=== PATIENT | male | born 1955 | race Two or more races ===

== ENCOUNTER 2017-07-04 00:27 | Emergency (ER) | payer MEDICAID ==
[~2017-07-04] VITALS: Ht 165.1 cm; Wt 79.4 kg
[~2017-07-04 00:27] MED LIST: HYDR25TA4; LISI-646
[2017-07-04 01:25] LABS: Basophils # (auto) 0 uL; Basophils % (auto) 0.2 % (0.0-2.0); Eosinophils # (auto) 0.1 uL; Eosinophils % (auto) 0.7 % (0.0-7.0); Hematocrit 28.1 % (41.0-53.0); Hemoglobin 9.6 g/dL (13.5-17.5); Lymphocytes # (auto) 0.8 uL; Lymphocytes % (auto) 7.8 % (10.0-50.0); Mean Corpuscular Hemoglobin 30.7 pg (28.0-32.0); Mean Corpuscular Hgb Conc. 34.1 g/dL (32.0-36.0); Monocytes # (auto) 1.1 uL; Monocytes % (auto) 11.1 % (0.0-12.0); Neutrophils # (auto) 8.1 uL; Neutrophils % (auto) 80.2 % (37.0-80.0); Nucleated Red Blood Cells % 0.1 %; Platelet Count (auto) 76 10^3/uL (140-450); Red Blood Cells 3.12 10^6/uL (4.5-5.90); Red Cell Distribution Width 15.1 % (11.8-14.3)
[2017-07-04 01:38] LABS: Alanine Aminotransferase 55 U/L (16-61); Albumin 1.6 g/dL (3.4-5.0); Anion Gap 10 (5-15); Aspartate Aminotransferase 151 U/L (15-37); BUN/Creatinine Ratio 21.1; Blood Urea Nitrogen 30 mg/dL (7-18); Calcium 7.1 mg/dL (8.5-10.1); Carbon Dioxide 18 mmol/L (21-32); Chloride 113 mmol/L (98-107); GFR African American 65 mL/min; GFR Non-African American 54 mL/min; Glucose 89 mg/dL (74-106); Lipase 264 U/L (73-393); Potassium 4.1 mmol/L (3.5-5.1); Sodium 141 mmol/L (136-145)
[2017-07-04 01:43] LABS: Alkaline Phosphatase 107 U/L (45-117); Bilirubin, Total 1.1 mg/dL (0.2-1.0); INR 1.28 (0.9-1.15); Partial Thromboplastin Time 34.5 sec (22.64-33.71); Total Protein 7.5 g/dL (6.4-8.2)
[2017-07-04] MEDS ORDERED: cefTRIAXone 1GM/10ml IVPUSH 10 ML IV ONE (04:45)
[2017-07-04] MEDS ORDERED: MORPHINE SULFATE 4 MG/ML SYR/VIAL IV ONE (05:00)
[2017-07-04] MEDS ORDERED: ONDANSETRON HCL 4 MG/2 ML VIAL IV ONE (05:00)
[2017-07-04 05:58] LABS: Urine Bacteria MANY /hpf (None Seen); Urine Blood 3+ /uL (Negative); Urine Hyaline Cast MANY /lpf (0 - 2); Urine Mucus FEW (None Seen); Urine Specific Gravity 1.016 (1.001-1.035); Urine WBC 23 /hpf (0 - 3)
[2017-07-04 06:11] LABS: Alcohol, Urine < 3.0 mg/dL (0-5); Amphetamine Screen, Urine POSITIVE (NEGATIVE); Barbiturate Scree,Urine NEGATIVE (NEGATIVE); Benzodiazephine Screen, Urine NEGATIVE (NEGATIVE); Cannabinoid Screen, Urine NEGATIVE (NEGATIVE); Cocaine Screen, Urine NEGATIVE (NEGATIVE); Opiate Scree,Urine POSITIVE (NEGATIVE); Phencyclidine Screen, Urine NEGATIVE (NEGATIVE)
[2017-07-04 07:43] VITALS: BP 154/92
[2017-07-04] MEDS ORDERED: CLINDAMYCIN 900MG IV 50 ML IV ONE (08:00)
== END 2017-07-04 08:40 | disposition home or self-care (01) ==
LOC: EDBD 00:27 → ER 00:27
DX: M46.26 Osteomyelitis of vertebra, lumbar region (principal); F15.20 Other stimulant dependence, uncomplicated; I10 Essential (primary) hypertension; Z88.6 Allergy status to analgesic agent; W10.9XXA Fall (on) (from) unspecified stairs and steps, initial encounter; Y93.89 Activity, other specified; Y92.89 Other specified places as the place of occurrence of the external cause; Y99.8 Other external cause status
CPT/HCPCS: 36415; 72131; 80053; 80307; 81001; 83690; 84484; 85025; 85610; 85730; 96365; 96375; 99285; J2270; J2405; J3490

== ENCOUNTER 2017-12-18 18:07 | Inpatient (IN) | payer MEDICAID ==
[~2017-12-18] VITALS: Ht 165.1 cm; Wt 73.9 kg
[2017-12-18 19:35] LABS: Basophils # (auto) 0 uL; Basophils % (auto) 0.7 % (0.0-2.0); Eosinophils # (auto) 0.2 uL; Monocytes # (auto) 0.4 uL; Red Blood Cells 2.87 10^6/uL (4.5-5.90)
[2017-12-18 19:38] LABS: Platelet Count (auto) 50 10^3/uL (140-450)
[2017-12-18 19:40] LABS: White Blood Cell 3.9 10^3/uL (4.4-10.8)
[2017-12-18 19:42] LABS: Eosinophils % (auto) 6.2 % (0.0-7.0); Lymphocytes # (auto) 0.9 uL; Lymphocytes % (auto) 22.2 % (10.0-50.0); Monocytes % (auto) 10.5 % (0.0-12.0); Neutrophils # (auto) 2.4 uL; Neutrophils % (auto) 60.4 % (37.0-80.0)
[2017-12-18 19:43] LABS: Hemoglobin 8.3 g/dL (13.5-17.5); Mean Corpuscular Hemoglobin 28.8 pg (28.0-32.0); Mean Corpuscular Hgb Conc. 33.1 g/dL (32.0-36.0); Red Cell Distribution Width 15.9 % (11.8-14.3)
[2017-12-18 19:49] LABS: INR 1.24 (0.9-1.15); Partial Thromboplastin Time 29.9 sec (23.78-33.04); Prothrombin Time 13.1 sec (9.27-12.13)
[2017-12-18 19:52] LABS: Alanine Aminotransferase 32 U/L (16-61); Albumin 1.7 g/dL (3.4-5.0); Amylase 93 U/L (25-115); Anion Gap 6 (5-15); Aspartate Aminotransferase 81 U/L (15-37); BUN/Creatinine Ratio 19.8; Blood Urea Nitrogen 23 mg/dL (7-18); Calcium 6.7 mg/dL (8.5-10.1); Carbon Dioxide 21 mmol/L (21-32); Chloride 116 mmol/L (98-107); GFR African American 82 mL/min; GFR Non-African American 68 mL/min; Glucose 98 mg/dL (74-106); Lipase 270 U/L (73-393); Potassium 3.9 mmol/L (3.5-5.1); Sodium 143 mmol/L (136-145)
[2017-12-18 19:57] LABS: Alkaline Phosphatase 158 U/L (45-117); Bilirubin, Total 0.4 mg/dL (0.2-1.0); Total Protein 6.7 g/dL (6.4-8.2)
[2017-12-19 01:17] LABS: Alcohol, Urine < 3.0 mg/dL (0-5); Amphetamine Screen, Urine NEGATIVE (NEGATIVE); Barbiturate Scree,Urine NEGATIVE (NEGATIVE); Benzodiazephine Screen, Urine NEGATIVE (NEGATIVE); Cannabinoid Screen, Urine NEGATIVE (NEGATIVE); Cocaine Screen, Urine NEGATIVE (NEGATIVE); Opiate Scree,Urine NEGATIVE (NEGATIVE); Phencyclidine Screen, Urine NEGATIVE (NEGATIVE)
[2017-12-19 01:29] LABS: Urine Bacteria FEW /hpf (None Seen); Urine Blood 3+ /uL (Negative); Urine Hyaline Cast FEW /lpf (0 - 2); Urine Mucus FEW (None Seen); Urine Specific Gravity 1.016 (1.001-1.035); Urine WBC 6 /hpf (0 - 3)
[2017-12-19] MEDS ORDERED: NALBUPHINE HCL 10 MG/1ml INJECTION IV ONE (01:30)
[2017-12-19] MEDS ORDERED: FUROSEMIDE 20 MG/2 ML VIAL IV ONE (01:30)
[2017-12-19] MEDS ORDERED: ONDANSETRON HCL 4 MG/2 ML VIAL IV ONE (01:30)
[2017-12-19] MEDS ORDERED: SPIRONOLACTONE 25 MG TAB PO ONE (01:30)
[2017-12-19] MEDS ORDERED: TEMAZEPAM 15 MG CAP PO PRN (03:00)
[2017-12-19] MEDS ORDERED: ONDANSETRON HCL 4 MG/2 ML VIAL IV PRN (03:00)
[2017-12-19] MEDS: PIPERACILLIN-TAZOB 3.375GM 100 ML IV SCH ×4 (05:25→23:30)
[2017-12-19] MEDS: FUROSEMIDE 40 MG TAB PO SCH (09:15)
[2017-12-19] MEDS: LACTULOSE 20Gm/30ML SOLN PO SCH ×2 (09:15→21:31)
[2017-12-19] MEDS: SPIRONOLACTONE 25 MG TAB PO SCH (09:15)
[2017-12-19] MEDS: amLODIPine BESYLATE 5 MG TAB PO SCH (09:15)
[2017-12-19] MEDS: PANTOPRAZOLE 40 MG TAB PO SCH (09:16)
[2017-12-19] MEDS: RIFAXIMIN 550 MG TAB PO SCH ×2 (11:00→21:31)
[2017-12-19] MEDS ORDERED: methylPREDNISolone SOD SUCC 40 MG/ML VL IV ONE (14:45)
[2017-12-19] MEDS ORDERED: traMADol HCL 50 MG TAB PO ONE (14:45)
[2017-12-19] MEDS: ALBUTEROL SULF 2.5 MG/0.5ML(0.5%) NEB SOLN NEB PRN (14:50)
[2017-12-19 14:55] VITALS: BP 148/77
[2017-12-19] MEDS: cloNIDine HCL 0.1 MG TAB PO PRN (17:52)
[2017-12-19 17:55] VITALS: BP 163/93
[2017-12-19] MEDS ORDERED: FURO40TA PO (18:32)
[2017-12-19] MEDS ORDERED: PANT40TA2 PO (18:32)
[2017-12-19] MEDS ORDERED: SPIR50TA2 PO (18:32)
[2017-12-19] MEDS ORDERED: LACT10SO3 PO (18:32)
[2017-12-19] MEDS ORDERED: PROP10TA57 PO (18:32)
[2017-12-19] MEDS: IPRATROPIUM BROM 0.5 MG/2.5ML INH SOL NEB SCH (18:50)
[2017-12-19 22:00] VITALS: BP 142/92
[2017-12-19] MEDS: methylPREDNISolone SOD SUCC 40 MG/ML VL IV SCH (23:30)
[2017-12-20] VITALS (9 sets, daily range): BP systolic 121–154; BP diastolic 61–84
[2017-12-20] MEDS: IPRATROPIUM BROM 0.5 MG/2.5ML INH SOL NEB SCH ×4 (00:41→19:18)
[2017-12-20] MEDS: methylPREDNISolone SOD SUCC 40 MG/ML VL IV SCH ×3 (05:38→21:51)
[2017-12-20] MEDS: PIPERACILLIN-TAZOB 3.375GM 100 ML IV SCH ×4 (05:38→23:56)
[2017-12-20 08:53] LABS: Basophils # (auto) 0 uL; Eosinophils # (auto) 0 uL; Hemoglobin 8.4 g/dL (13.5-17.5); Monocytes # (auto) 0.1 uL; Neutrophils # (auto) 6.5 uL
[2017-12-20 08:56] LABS: Hematocrit 25.1 % (41.0-53.0); Lymphocytes # (auto) 0.3 uL; Lymphocytes % (auto) 4.8 % (10.0-50.0); Mean Corpuscular Hgb Conc. 33.6 g/dL (32.0-36.0); Mean Corpuscular Volume 86.3 fL (80.0-100.0); Monocytes % (auto) 1.5 % (0.0-12.0); Neutrophils % (auto) 93.7 % (37.0-80.0); Platelet Count (auto) 37 10^3/uL (140-450); Red Cell Distribution Width 15.9 % (11.8-14.3); White Blood Cell 6.9 10^3/uL (4.4-10.8)
[2017-12-20 09:17] LABS: Albumin 1.7 g/dL (3.4-5.0); BUN/Creatinine Ratio 16.5; Bilirubin, Total 0.5 mg/dL (0.2-1.0); Potassium 4.5 mmol/L (3.5-5.1); Total Protein 6.9 g/dL (6.4-8.2)
[2017-12-20] MEDS: RIFAXIMIN 550 MG TAB PO SCH ×2 (09:54→21:52)
[2017-12-20] MEDS: amLODIPine BESYLATE 5 MG TAB PO SCH (09:54)
[2017-12-20] MEDS: LACTULOSE 20Gm/30ML SOLN PO SCH ×2 (09:54→21:51)
[2017-12-20] MEDS: SPIRONOLACTONE 25 MG TAB PO SCH (09:55)
[2017-12-20] MEDS: PANTOPRAZOLE 40 MG TAB PO SCH (09:55)
[2017-12-20] MEDS: FUROSEMIDE 40 MG TAB PO SCH (09:55)
[2017-12-20] MEDS: traMADol HCL 50 MG TAB PO PRN ×2 (09:59→22:00)
[2017-12-20] MEDS: cloNIDine HCL 0.1 MG TAB PO PRN (11:50)
[2017-12-20 15:19] LABS: Basophils # (auto) 0 uL; Eosinophils # (auto) 0 uL; Mean Corpuscular Hemoglobin 28.7 pg (28.0-32.0); Monocytes # (auto) 0.2 uL
[2017-12-20 15:21] LABS: Hematocrit 23.4 % (41.0-53.0); Hemoglobin 7.7 g/dL (13.5-17.5); Lymphocytes # (auto) 0.4 uL; Lymphocytes % (auto) 4.5 % (10.0-50.0); Mean Corpuscular Volume 86.7 fL (80.0-100.0); Monocytes % (auto) 1.8 % (0.0-12.0); Neutrophils # (auto) 8.9 uL; Neutrophils % (auto) 93.7 % (37.0-80.0); Platelet Count (auto) 36 10^3/uL (140-450); Red Cell Distribution Width 15.6 % (11.8-14.3); White Blood Cell 9.4 10^3/uL (4.4-10.8)
[2017-12-20 15:38] LABS: Albumin 1.7 g/dL (3.4-5.0); BUN/Creatinine Ratio 16.9; Bilirubin, Total 0.4 mg/dL (0.2-1.0); Calcium 6.9 mg/dL (8.5-10.1); Magnesium 2.3 mg/dL (1.6-2.6); Potassium 4.5 mmol/L (3.5-5.1); Total Protein 6.3 g/dL (6.4-8.2)
[2017-12-20 16:19] LABS: Hepatitis B Surface Antibody Negative
[2017-12-20 16:58] LABS: Hepatitis A Total Antibody Positive
[2017-12-20 17:23] LABS: Hepatitis B Core Total AB Negative; Hepatitis B Surface Antigen Negative (Negative)
[2017-12-20 17:27] LABS: Hepatitis C Antibody Positive (Negative)
[2017-12-20] MEDS: Ensure HIGH Protein Chocolate 8oz Bottle PO SCH (17:41)
[2017-12-20] MEDS: ALBUTEROL SULF 2.5 MG/0.5ML(0.5%) NEB SOLN NEB PRN (19:17)
[2017-12-20] MEDS: PROPRANOLOL HCL 20 MG TAB PO SCH (21:52)
[2017-12-21] VITALS (8 sets, daily range): BP systolic 139–162; BP diastolic 73–83
[2017-12-21] MEDS: ALBUTEROL SULF 2.5 MG/0.5ML(0.5%) NEB SOLN NEB PRN (00:51)
[2017-12-21] MEDS: IPRATROPIUM BROM 0.5 MG/2.5ML INH SOL NEB SCH ×4 (00:51→20:08)
[2017-12-21] MEDS: traMADol HCL 50 MG TAB PO PRN (05:54)
[2017-12-21] MEDS: PIPERACILLIN-TAZOB 3.375GM 100 ML IV SCH ×2 (05:54→12:00)
[2017-12-21] MEDS: Ensure HIGH Protein Chocolate 8oz Bottle PO SCH ×3 (08:00→18:00)
[2017-12-21] MEDS: PANTOPRAZOLE 40 MG TAB PO SCH (10:00)
[2017-12-21] MEDS: RIFAXIMIN 550 MG TAB PO SCH ×2 (10:00→22:12)
[2017-12-21] MEDS: LACTULOSE 20Gm/30ML SOLN PO SCH ×2 (10:00→22:12)
[2017-12-21] MEDS: SPIRONOLACTONE 25 MG TAB PO SCH (10:00)
[2017-12-21] MEDS: PROPRANOLOL HCL 20 MG TAB PO SCH ×2 (10:00→22:13)
[2017-12-21] MEDS: FUROSEMIDE 40 MG TAB PO SCH (10:00)
[2017-12-21] MEDS: methylPREDNISolone SOD SUCC 40 MG/ML VL IV SCH (10:00)
[2017-12-21 12:56] LABS: Basophils # (auto) 0 uL; Eosinophils # (auto) 0 uL; Hemoglobin 8.7 g/dL (13.5-17.5); Monocytes # (auto) 0.5 uL
[2017-12-21 12:59] LABS: Hematocrit 26.4 % (41.0-53.0); Lymphocytes # (auto) 0.5 uL; Lymphocytes % (auto) 3.4 % (10.0-50.0); Mean Corpuscular Hemoglobin 28.6 pg (28.0-32.0); Mean Corpuscular Volume 86.9 fL (80.0-100.0); Monocytes % (auto) 3.3 % (0.0-12.0); Neutrophils # (auto) 14.9 uL; Neutrophils % (auto) 93.3 % (37.0-80.0); Platelet Count (auto) 56 10^3/uL (140-450); Red Blood Cells 3.03 10^6/uL (4.5-5.90); Red Cell Distribution Width 16.2 % (11.8-14.3)
[2017-12-21] MEDS ORDERED: cefTRIAXone 1GM/10ml IVPUSH 10 ML IV ONE (13:00)
[2017-12-21] MEDS ORDERED: LIDOCAINE 2% (LOCAL ANESTH.) PF 5ml SDV ONE (14:27)
[2017-12-21] MEDS: cloNIDine HCL 0.1 MG TAB PO PRN (17:58)
[2017-12-22] VITALS (7 sets, daily range): BP systolic 122–138; BP diastolic 55–78
[2017-12-22] MEDS: IPRATROPIUM BROM 0.5 MG/2.5ML INH SOL NEB SCH ×4 (00:57→18:45)
[2017-12-22 06:21] LABS: Basophils # (auto) 0 uL; Basophils % (auto) 0.1 % (0.0-2.0); Eosinophils # (auto) 0 uL; Hemoglobin 7.8 g/dL (13.5-17.5); Monocytes # (auto) 0.5 uL; Neutrophils # (auto) 6.8 uL; Platelet Count (auto) 40 10^3/uL (140-450); White Blood Cell 8.2 10^3/uL (4.4-10.8)
[2017-12-22 06:25] LABS: Hematocrit 23.2 % (41.0-53.0); Lymphocytes # (auto) 0.8 uL; Lymphocytes % (auto) 10.2 % (10.0-50.0); Mean Corpuscular Hemoglobin 28.9 pg (28.0-32.0); Mean Corpuscular Hgb Conc. 33.7 g/dL (32.0-36.0); Mean Corpuscular Volume 85.8 fL (80.0-100.0); Monocytes % (auto) 6.6 % (0.0-12.0); Neutrophils % (auto) 83.1 % (37.0-80.0); Red Cell Distribution Width 15.6 % (11.8-14.3)
[2017-12-22 06:36] LABS: INR 1.43 (0.9-1.15)
[2017-12-22 06:39] LABS: BUN/Creatinine Ratio 26.1; Potassium 4.1 mmol/L (3.5-5.1)
[2017-12-22] MEDS: ALBUTEROL SULF 2.5 MG/0.5ML(0.5%) NEB SOLN NEB PRN ×2 (06:39→11:39)
[2017-12-22] MEDS: PROPRANOLOL HCL 20 MG TAB PO SCH ×2 (09:52→22:05)
[2017-12-22] MEDS: FUROSEMIDE 40 MG TAB PO SCH (09:54)
[2017-12-22] MEDS: SPIRONOLACTONE 25 MG TAB PO SCH (09:54)
[2017-12-22] MEDS: LACTULOSE 20Gm/30ML SOLN PO SCH ×2 (09:55→22:05)
[2017-12-22] MEDS: cefTRIAXone 1GM/10ml IVPUSH 10 ML IV SCH (09:55)
[2017-12-22] MEDS: Ensure HIGH Protein Chocolate 8oz Bottle PO SCH ×3 (09:55→18:00)
[2017-12-22] MEDS ORDERED: FAMOTIDINE 20 MG TAB PO SCH (10:00)
[2017-12-22] MEDS ORDERED: methylPREDNISolone SOD SUCC 40 MG/ML VL IV SCH (10:00)
[2017-12-22] MEDS: RIFAXIMIN 550 MG TAB PO SCH ×2 (12:33→22:04)
[2017-12-23] MEDS: IPRATROPIUM BROM 0.5 MG/2.5ML INH SOL NEB SCH ×3 (00:30→11:39)
[2017-12-23 04:48] LABS: Basophils # (auto) 0 uL; Eosinophils # (auto) 0 uL; Neutrophils # (auto) 4.1 uL; Platelet Count (auto) 41 10^3/uL (140-450); White Blood Cell 5.6 10^3/uL (4.4-10.8)
[2017-12-23 04:51] LABS: Basophils % (auto) 0.2 % (0.0-2.0); Eosinophils % (auto) 0.7 % (0.0-7.0); Hematocrit 23.7 % (41.0-53.0); Mean Corpuscular Hemoglobin 28.7 pg (28.0-32.0); Mean Corpuscular Hgb Conc. 33.8 g/dL (32.0-36.0); Mean Corpuscular Volume 84.8 fL (80.0-100.0); Monocytes # (auto) 0.5 uL; Neutrophils % (auto) 73.1 % (37.0-80.0); Nucleated Red Blood Cells % 0.1 %; Red Blood Cells 2.79 10^6/uL (4.5-5.90); Red Cell Distribution Width 15.4 % (11.8-14.3)
[2017-12-23 05:00] VITALS: BP 130/64
[2017-12-23 05:14] LABS: BUN/Creatinine Ratio 27.6; Potassium 3.7 mmol/L (3.5-5.1)
[2017-12-23] MEDS: ALBUTEROL SULF 2.5 MG/0.5ML(0.5%) NEB SOLN NEB PRN ×2 (06:11→11:39)
[2017-12-23 08:28] VITALS: BP 145/80
[2017-12-23] MEDS: cefTRIAXone 1GM/10ml IVPUSH 10 ML IV SCH (09:34)
[2017-12-23] MEDS: Ensure HIGH Protein Chocolate 8oz Bottle PO SCH ×2 (09:34→12:00)
[2017-12-23] MEDS: LACTULOSE 20Gm/30ML SOLN PO SCH (09:34)
[2017-12-23] MEDS: FUROSEMIDE 40 MG TAB PO SCH (09:35)
[2017-12-23] MEDS: PROPRANOLOL HCL 20 MG TAB PO SCH (09:35)
[2017-12-23] MEDS: SPIRONOLACTONE 25 MG TAB PO SCH (09:35)
[2017-12-23] MEDS: RIFAXIMIN 550 MG TAB PO SCH (10:00)
[2017-12-23] MEDS ORDERED: predniSONE 20 MG TAB PO SCH (10:00)
[2017-12-23] MEDS ORDERED: FAMOTIDINE 20 MG TAB PO SCH (10:00)
[2017-12-23] MEDS ORDERED: NUTR-559 PO (12:25)
[2017-12-23 12:57] VITALS: BP 141/79
== END 2017-12-23 14:13 | disposition home health service (06) | DRG 280 ==
LOC: EDBD 18:07 → ER 18:16 → OVERFLOW 18:17 → WEST WING 12-19 17:13
PROVIDERS: ADMIT Nurse Practitioner; ATTEND Internal Medicine
PROC: 30233R1 Transfusion of Nonautologous Platelets into Peripheral Vein, Percutaneous Approach (ICD-10-PCS; 2017-12-20)
PROC: 0W9G3ZZ Drainage of Peritoneal Cavity, Percutaneous Approach (ICD-10-PCS; principal; 2017-12-21)
DX: K70.31 Alcoholic cirrhosis of liver with ascites (principal); N17.0 Acute kidney failure with tubular necrosis; E43 Unspecified severe protein-calorie malnutrition; D61.818 Other pancytopenia; K76.6 Portal hypertension; I50.9 Heart failure, unspecified; E88.09 Other disorders of plasma-protein metabolism, not elsewhere classified; I11.0 Hypertensive heart disease with heart failure; K57.30 Diverticulosis of large intestine without perforation or abscess without bleeding; J44.1 Chronic obstructive pulmonary disease with (acute) exacerbation; B18.2 Chronic viral hepatitis C; M19.90 Unspecified osteoarthritis, unspecified site; J98.11 Atelectasis; K21.9 Gastro-esophageal reflux disease without esophagitis; K42.9 Umbilical hernia without obstruction or gangrene; M51.26 Other intervertebral disc displacement, lumbar region; Z79.899 Other long term (current) drug therapy; Z88.8 Allergy status to other drugs, medicaments and biological substances; Z68.27 Body mass index [BMI] 27.0-27.9, adult
CPT/HCPCS: 10022; 36415; 49083; 51702; 71045; 71046; 74176; 76705; 76942; 80048; 80053; 80307; 81001; 82140; 82150; 83605; 83690; 83735; 83880; 83986; 84484; 85025; 85610; 85730; 86704; 86706; 86708; 86803; 86850; 86900; 86901; 87040; 87081; 87205; 87340; 89051; 93005; 94640; 94761; 96374; 96375; 97163; J0696; J2001; J2405; J2543

== ENCOUNTER 2018-01-11 00:20 | Inpatient (IN) | payer MEDICAID ==
[~2018-01-11] VITALS: Ht 165.1 cm; Wt 66.8 kg
[~2018-01-11 00:20] MED LIST changes: +FURO40TA PO; +LACT10SO3 PO; +NUTR-559 PO; +PANT40TA2 PO; +PROP10TA57 PO; +SPIR50TA2 PO
[2018-01-11 01:52] LABS: Basophils # (auto) 0 uL; Hemoglobin 7.8 g/dL (13.5-17.5); Lymphocytes # (auto) 0.7 uL; Monocytes # (auto) 0.4 uL; Platelet Count (auto) 55 10^3/uL (140-450)
[2018-01-11 01:54] LABS: Basophils % (auto) 0.8 % (0.0-2.0); Eosinophils # (auto) 0.1 uL; Eosinophils % (auto) 4.7 % (0.0-7.0); Hematocrit 24.4 % (41.0-53.0); Lymphocytes % (auto) 22.7 % (10.0-50.0); Mean Corpuscular Hemoglobin 26.5 pg (28.0-32.0); Mean Corpuscular Hgb Conc. 31.9 g/dL (32.0-36.0); Monocytes % (auto) 13.8 % (0.0-12.0); Neutrophils # (auto) 1.8 uL; Nucleated Red Blood Cells % 0.1 %; Red Blood Cells 2.94 10^6/uL (4.5-5.90); Red Cell Distribution Width 15.1 % (11.8-14.3); White Blood Cell 3.1 10^3/uL (4.4-10.8)
[2018-01-11 02:07] LABS: INR 1.29 (0.9-1.15); Prothrombin Time 13.6 sec (9.27-12.13)
[2018-01-11 02:10] LABS: Albumin 1.9 g/dL (3.4-5.0); Calcium 6.8 mg/dL (8.5-10.1); Potassium 3.4 mmol/L (3.5-5.1)
[2018-01-11 02:12] LABS: Bilirubin, Total 0.5 mg/dL (0.2-1.0); Total Protein 6.2 g/dL (6.4-8.2)
[2018-01-11] MEDS ORDERED: ONDANSETRON HCL 4 MG/2 ML VIAL IV ONE (04:15)
[2018-01-11] MEDS ORDERED: MORPHINE SULFATE 4 MG/ML SYR/VIAL IV ONE (04:15)
[2018-01-11] MEDS ORDERED: DEXTROSE (25%) 10 ML SYRG IV ONE (04:45)
[2018-01-11 05:06] LABS: Urine Bacteria NONE SEEN /hpf (None Seen); Urine Blood 3+ /uL (Negative); Urine Mucus FEW (None Seen); Urine Specific Gravity 1.017 (1.001-1.035); Urine WBC 2 /hpf (0 - 3)
[2018-01-11] MEDS ORDERED: POTASSIUM EFFERVESENT TAB 25 MEQ PO ONE (10:00)
[2018-01-11] MEDS ORDERED: LACTULOSE 20Gm/30ML SOLN PO SCH (10:00)
[2018-01-11] MEDS ORDERED: DOCUSATE SOD 100 MG CAP PO PRN (10:15)
[2018-01-11] MEDS: MORPHINE SULF INJ 2 MG/ML SYRINGE 1ML IV PRN ×3 (10:57→22:14)
[2018-01-11] MEDS: HCTZ 25 MG TAB PO SCH (11:00)
[2018-01-11] MEDS: FUROSEMIDE 40 MG TAB PO SCH (11:01)
[2018-01-11] MEDS: PANTOPRAZOLE 40 MG TAB PO SCH (11:02)
[2018-01-11] MEDS: PROPRANOLOL HCL 20 MG TAB PO SCH ×2 (11:03→22:12)
[2018-01-11] MEDS: LISINOPRIL 20 MG TAB PO SCH (11:04)
[2018-01-11] MEDS: ALBUTEROL SULF 2.5 MG/0.5ML(0.5%) NEB SOLN NEB SCH ×2 (12:08→18:52)
[2018-01-11] MEDS: Ensure Enlive Strawberry 8oz Bottle PO SCH ×2 (13:09→19:04)
[2018-01-11] MEDS: SODIUM CHLOR 0.9% PF (SALINE LOCK) 10ML VIAL/SYR IV SCH ×2 (14:01→22:09)
[2018-01-11 14:33] VITALS: BP 177/48
[2018-01-11 17:00] VITALS: BP 119/64
[2018-01-11] MEDS: SPIRONOLACTONE 25 MG TAB PO SCH (17:55)
[2018-01-11] MEDS: ONDANSETRON HCL 4 MG/2 ML VIAL IV PRN ×2 (18:15→22:14)
[2018-01-11] MEDS ORDERED: PHYTONADIONE ORAL Susp 10 mg/10ml PO ONE (18:30)
[2018-01-11 21:41] VITALS: BP 107/52
[2018-01-11] MEDS ORDERED: MORPHINE SULF INJ 2 MG/ML SYRINGE 1ML ONE (21:55)
[2018-01-11] MEDS ORDERED: ONDANSETRON HCL 4 MG/2 ML VIAL ONE (21:55)
[2018-01-11] MEDS: LACTULOSE 20Gm/30ML SOLN PO SCH (22:10)
[2018-01-12 04:55] VITALS: BP 107/48
[2018-01-12] MEDS: SODIUM CHLOR 0.9% PF (SALINE LOCK) 10ML VIAL/SYR IV SCH ×3 (06:12→22:25)
[2018-01-12] MEDS: SPIRONOLACTONE 25 MG TAB PO SCH ×2 (06:13→18:00)
[2018-01-12] MEDS: LACTULOSE 20Gm/30ML SOLN PO SCH ×3 (06:13→22:26)
[2018-01-12] MEDS: MORPHINE SULF INJ 2 MG/ML SYRINGE 1ML IV PRN ×5 (06:30→22:30)
[2018-01-12] MEDS: ALBUTEROL SULF 2.5 MG/0.5ML(0.5%) NEB SOLN NEB SCH ×4 (07:21→23:49)
[2018-01-12 07:36] LABS: Basophils # (auto) 0 uL; Eosinophils # (auto) 0.2 uL; Hemoglobin 9.2 g/dL (13.5-17.5); Monocytes # (auto) 0.4 uL; Neutrophils # (auto) 2.4 uL; Nucleated Red Blood Cells % 0.1 %; White Blood Cell 3.8 10^3/uL (4.4-10.8)
[2018-01-12 07:39] LABS: Basophils % (auto) 0.5 % (0.0-2.0); Eosinophils % (auto) 5.5 % (0.0-7.0); Hematocrit 28.8 % (41.0-53.0); Lymphocytes # (auto) 0.8 uL; Lymphocytes % (auto) 21.5 % (10.0-50.0); Mean Corpuscular Hemoglobin 26.8 pg (28.0-32.0); Mean Corpuscular Hgb Conc. 32.1 g/dL (32.0-36.0); Mean Corpuscular Volume 83.4 fL (80.0-100.0); Monocytes % (auto) 10.5 % (0.0-12.0); Platelet Count (auto) 65 10^3/uL (140-450); Red Blood Cells 3.45 10^6/uL (4.5-5.90)
[2018-01-12 08:08] LABS: Albumin 1.9 g/dL (3.4-5.0); BUN/Creatinine Ratio 18.9; Bilirubin, Total 0.5 mg/dL (0.2-1.0); Calcium 7.5 mg/dL (8.5-10.1); Potassium 3.9 mmol/L (3.5-5.1); Total Protein 6.6 g/dL (6.4-8.2)
[2018-01-12 09:00] VITALS: BP 101/57
[2018-01-12] MEDS ORDERED: LACTULOSE 20Gm/30ML SOLN PO ONE (09:30)
[2018-01-12] MEDS ORDERED: POTASSIUM CHL 10 Meq TABLET PO ONE (09:30)
[2018-01-12] MEDS: Ensure Enlive Strawberry 8oz Bottle PO SCH ×3 (09:52→18:13)
[2018-01-12] MEDS: LISINOPRIL 20 MG TAB PO SCH (09:55)
[2018-01-12] MEDS: HCTZ 25 MG TAB PO SCH (09:55)
[2018-01-12] MEDS: MULTIPLE VITAMIN TAB PO SCH (09:56)
[2018-01-12] MEDS: PROPRANOLOL HCL 20 MG TAB PO SCH ×2 (09:57→22:27)
[2018-01-12] MEDS: PANTOPRAZOLE 40 MG TAB PO SCH (09:57)
[2018-01-12] MEDS: FUROSEMIDE 40 MG TAB PO SCH (10:00)
[2018-01-12] MEDS: ONDANSETRON HCL 4 MG/2 ML VIAL IV PRN ×4 (10:34→22:29)
[2018-01-12 13:00] VITALS: BP 92/55
[2018-01-12 17:00] VITALS: BP 107/58
[2018-01-12 21:47] VITALS: BP 106/55
[2018-01-13 05:05] VITALS: BP 120/63
[2018-01-13 06:15] LABS: Basophils # (auto) 0 uL; Eosinophils # (auto) 0.2 uL; Hematocrit 24.4 % (41.0-53.0); Hemoglobin 8.2 g/dL (13.5-17.5); Lymphocytes # (auto) 0.7 uL; Mean Corpuscular Hgb Conc. 33.5 g/dL (32.0-36.0); Monocytes # (auto) 0.4 uL; Red Blood Cells 2.97 10^6/uL (4.5-5.90); White Blood Cell 2.8 10^3/uL (4.4-10.8)
[2018-01-13 06:19] LABS: Basophils % (auto) 0.4 % (0.0-2.0); Eosinophils % (auto) 7.7 % (0.0-7.0); Lymphocytes % (auto) 24.1 % (10.0-50.0); Mean Corpuscular Hemoglobin 27.6 pg (28.0-32.0); Mean Corpuscular Volume 82.4 fL (80.0-100.0); Monocytes % (auto) 13.2 % (0.0-12.0); Neutrophils # (auto) 1.5 uL; Neutrophils % (auto) 54.6 % (37.0-80.0); Nucleated Red Blood Cells % 0.1 %; Platelet Count (auto) 52 10^3/uL (140-450); Red Cell Distribution Width 14.9 % (11.8-14.3)
[2018-01-13] MEDS: SODIUM CHLOR 0.9% PF (SALINE LOCK) 10ML VIAL/SYR IV SCH ×3 (06:20→21:21)
[2018-01-13] MEDS: ALBUTEROL SULF 2.5 MG/0.5ML(0.5%) NEB SOLN NEB SCH ×3 (06:20→19:33)
[2018-01-13] MEDS: LACTULOSE 20Gm/30ML SOLN PO SCH ×4 (06:21→21:20)
[2018-01-13] MEDS: SPIRONOLACTONE 25 MG TAB PO SCH ×2 (06:23→18:05)
[2018-01-13 06:39] LABS: Potassium 4.5 mmol/L (3.5-5.1)
[2018-01-13 06:46] LABS: Albumin 1.7 g/dL (3.4-5.0); BUN/Creatinine Ratio 18.5; Calcium 7.6 mg/dL (8.5-10.1); Magnesium 2.3 mg/dL (1.6-2.6)
[2018-01-13 06:49] LABS: Bilirubin, Total 0.4 mg/dL (0.2-1.0); Total Protein 5.5 g/dL (6.4-8.2)
[2018-01-13 08:27] VITALS: BP 112/62
[2018-01-13] MEDS: FUROSEMIDE 40 MG TAB PO SCH (09:42)
[2018-01-13] MEDS: Ensure Enlive Strawberry 8oz Bottle PO SCH ×3 (09:42→18:06)
[2018-01-13] MEDS: PROPRANOLOL HCL 20 MG TAB PO SCH ×2 (09:42→21:19)
[2018-01-13] MEDS: MORPHINE SULF INJ 2 MG/ML SYRINGE 1ML IV PRN ×2 (09:43→14:31)
[2018-01-13] MEDS: MULTIPLE VITAMIN TAB PO SCH (09:43)
[2018-01-13] MEDS: PANTOPRAZOLE 40 MG TAB PO SCH (09:43)
[2018-01-13] MEDS: ONDANSETRON HCL 4 MG/2 ML VIAL IV PRN ×2 (09:44→14:32)
[2018-01-13] MEDS ORDERED: POTASSIUM CHL 10 Meq TABLET PO SCH (10:00)
[2018-01-13 16:57] VITALS: BP 135/75
[2018-01-13 20:00] VITALS: BP 112/62
[2018-01-13] MEDS: TEMAZEPAM 15 MG CAP PO PRN (21:19)
[2018-01-13 21:46] VITALS: BP 128/62
[2018-01-14] VITALS (8 sets, daily range): BP systolic 110–148; BP diastolic 58–78
[2018-01-14] MEDS: SPIRONOLACTONE 25 MG TAB PO SCH ×2 (06:30→17:31)
[2018-01-14] MEDS: LACTULOSE 20Gm/30ML SOLN PO SCH ×4 (06:30→20:42)
[2018-01-14] MEDS: SODIUM CHLOR 0.9% PF (SALINE LOCK) 10ML VIAL/SYR IV SCH ×3 (06:31→20:42)
[2018-01-14 06:58] LABS: BUN/Creatinine Ratio 17.2; Calcium 7.4 mg/dL (8.5-10.1); Potassium 4.8 mmol/L (3.5-5.1)
[2018-01-14] MEDS: ALBUTEROL SULF 2.5 MG/0.5ML(0.5%) NEB SOLN NEB SCH ×3 (07:14→18:39)
[2018-01-14] MEDS: Ensure Enlive Strawberry 8oz Bottle PO SCH ×3 (08:00→17:31)
[2018-01-14] MEDS: MULTIPLE VITAMIN TAB PO SCH (10:07)
[2018-01-14] MEDS: PANTOPRAZOLE 40 MG TAB PO SCH (10:07)
[2018-01-14] MEDS: FUROSEMIDE 40 MG TAB PO SCH (10:07)
[2018-01-14] MEDS: PROPRANOLOL HCL 20 MG TAB PO SCH ×2 (10:07→22:00)
[2018-01-14] MEDS: RIFAXIMIN 550 MG TAB PO SCH ×2 (11:15→22:00)
[2018-01-14] MEDS: SODIUM CHLORIDE 0.9% 1,000 ML IV SCH (12:16)
[2018-01-14] MEDS: NutriHep RTU 240 mL Unflavored PO SCH (18:28)
[2018-01-14] MEDS: TEMAZEPAM 15 MG CAP PO PRN (20:42)
[2018-01-15] MEDS: ALBUTEROL SULF 2.5 MG/0.5ML(0.5%) NEB SOLN NEB SCH ×2 (00:20→06:46)
[2018-01-15] MEDS: LACTULOSE 20Gm/30ML SOLN PO SCH ×6 (04:00→20:01)
[2018-01-15 05:00] VITALS: BP 128/61
[2018-01-15] MEDS: SODIUM CHLOR 0.9% PF (SALINE LOCK) 10ML VIAL/SYR IV SCH ×3 (06:12→21:55)
[2018-01-15] MEDS: SPIRONOLACTONE 25 MG TAB PO SCH ×2 (06:12→17:59)
[2018-01-15 07:09] LABS: Basophils # (auto) 0 uL; Eosinophils # (auto) 0.2 uL; Hemoglobin 8.6 g/dL (13.5-17.5); Lymphocytes # (auto) 0.8 uL; Nucleated Red Blood Cells % 0.1 %; Red Cell Distribution Width 15.1 % (11.8-14.3); White Blood Cell 3.6 10^3/uL (4.4-10.8)
[2018-01-15 07:11] LABS: Basophils % (auto) 0.6 % (0.0-2.0); Eosinophils % (auto) 6.3 % (0.0-7.0); Hematocrit 26.3 % (41.0-53.0); Lymphocytes % (auto) 21.9 % (10.0-50.0); Mean Corpuscular Hgb Conc. 32.8 g/dL (32.0-36.0); Mean Corpuscular Volume 82.2 fL (80.0-100.0); Monocytes # (auto) 0.4 uL; Monocytes % (auto) 11.9 % (0.0-12.0); Neutrophils # (auto) 2.1 uL; Neutrophils % (auto) 59.3 % (37.0-80.0); Platelet Count (auto) 56 10^3/uL (140-450)
[2018-01-15 07:24] LABS: Albumin 1.7 g/dL (3.4-5.0); BUN/Creatinine Ratio 20.1; Calcium 7.2 mg/dL (8.5-10.1); Potassium 4.6 mmol/L (3.5-5.1)
[2018-01-15 07:26] LABS: Bilirubin, Total 0.5 mg/dL (0.2-1.0); Total Protein 5.8 g/dL (6.4-8.2)
[2018-01-15] MEDS: SODIUM CHLORIDE 0.9% 1,000 ML IV SCH (08:15)
[2018-01-15] MEDS: NutriHep RTU 240 mL Unflavored PO SCH ×2 (08:48→18:00)
[2018-01-15 08:49] VITALS: BP 138/65
[2018-01-15] MEDS ORDERED: cefTRIAXone 1GM/10ml IVPUSH 10 ML IV ONE (10:45)
[2018-01-15] MEDS: PROPRANOLOL HCL 20 MG TAB PO SCH ×2 (11:06→21:56)
[2018-01-15] MEDS: FUROSEMIDE 40 MG TAB PO SCH (11:06)
[2018-01-15] MEDS: RIFAXIMIN 550 MG TAB PO SCH ×2 (11:07→21:56)
[2018-01-15] MEDS: PANTOPRAZOLE 40 MG TAB PO SCH (11:07)
[2018-01-15] MEDS: MULTIPLE VITAMIN TAB PO SCH (11:07)
[2018-01-15 13:00] VITALS: BP 141/59
[2018-01-15 16:54] VITALS: BP 139/70
[2018-01-15 21:45] VITALS: BP 142/58
[2018-01-16 04:45] VITALS: BP 126/63
[2018-01-16] MEDS: SODIUM CHLOR 0.9% PF (SALINE LOCK) 10ML VIAL/SYR IV SCH (04:48)
[2018-01-16] MEDS: LACTULOSE 20Gm/30ML SOLN PO SCH ×3 (04:48→08:00)
[2018-01-16] MEDS: SPIRONOLACTONE 25 MG TAB PO SCH (05:52)
[2018-01-16 06:49] LABS: Basophils # (auto) 0 uL; Eosinophils # (auto) 0.3 uL; Hemoglobin 9.3 g/dL (13.5-17.5); Lymphocytes # (auto) 0.8 uL; Monocytes # (auto) 0.6 uL; Neutrophils # (auto) 2.1 uL; Platelet Count (auto) 57 10^3/uL (140-450); White Blood Cell 3.8 10^3/uL (4.4-10.8)
[2018-01-16 06:53] LABS: Basophils % (auto) 0.6 % (0.0-2.0); Eosinophils % (auto) 7.1 % (0.0-7.0); Hematocrit 28.1 % (41.0-53.0); Lymphocytes % (auto) 21.9 % (10.0-50.0); Mean Corpuscular Hemoglobin 26.9 pg (28.0-32.0); Mean Corpuscular Volume 81.5 fL (80.0-100.0); Monocytes % (auto) 15.3 % (0.0-12.0); Neutrophils % (auto) 55.1 % (37.0-80.0); Nucleated Red Blood Cells % 0.2 %; Red Blood Cells 3.44 10^6/uL (4.5-5.90); Red Cell Distribution Width 15.1 % (11.8-14.3)
[2018-01-16 07:11] LABS: Albumin 1.8 g/dL (3.4-5.0); BUN/Creatinine Ratio 18.1; Bilirubin, Total 0.5 mg/dL (0.2-1.0); Calcium 7.8 mg/dL (8.5-10.1); Potassium 4.6 mmol/L (3.5-5.1); Total Protein 6.4 g/dL (6.4-8.2)
[2018-01-16] MEDS: NutriHep RTU 240 mL Unflavored PO SCH (08:04)
[2018-01-16] MEDS ORDERED: cefTRIAXone 1GM/10ml IVPUSH 10 ML IV SCH (09:00)
[2018-01-16] MEDS: FUROSEMIDE 40 MG TAB PO SCH (09:46)
[2018-01-16] MEDS: PROPRANOLOL HCL 20 MG TAB PO SCH (09:46)
[2018-01-16] MEDS: RIFAXIMIN 550 MG TAB PO SCH (09:47)
[2018-01-16] MEDS: PANTOPRAZOLE 40 MG TAB PO SCH (09:47)
[2018-01-16] MEDS: MULTIPLE VITAMIN TAB PO SCH (09:47)
[2018-01-16 13:01] VITALS: BP 129/62
== END 2018-01-16 13:40 | disposition home or self-care (01) | DRG 279 ==
LOC: ER 00:22 → OVERFLOW 00:23 → EAST 15:28
PROVIDERS: ADMIT Internal Medicine; ATTEND Internal Medicine
PROC: 0W9G3ZZ Drainage of Peritoneal Cavity, Percutaneous Approach (ICD-10-PCS; principal; 2018-01-11)
DX: K72.90 Hepatic failure, unspecified without coma (principal); E43 Unspecified severe protein-calorie malnutrition; K65.2 Spontaneous bacterial peritonitis; D68.9 Coagulation defect, unspecified; D69.6 Thrombocytopenia, unspecified; E72.20 Disorder of urea cycle metabolism, unspecified; I13.0 Hypertensive heart and chronic kidney disease with heart failure and stage 1 through stage 4 chronic kidney disease, or unspecified chronic kidney disease; E83.51 Hypocalcemia; B18.2 Chronic viral hepatitis C; D50.9 Iron deficiency anemia, unspecified; E16.2 Hypoglycemia, unspecified; E78.5 Hyperlipidemia, unspecified; I86.4 Gastric varices; I86.8 Varicose veins of other specified sites; J45.909 Unspecified asthma, uncomplicated; K21.9 Gastro-esophageal reflux disease without esophagitis; K42.9 Umbilical hernia without obstruction or gangrene; M51.26 Other intervertebral disc displacement, lumbar region; N18.3 Chronic kidney disease, stage 3 (moderate); K70.31 Alcoholic cirrhosis of liver with ascites; I50.9 Heart failure, unspecified; K76.6 Portal hypertension; D64.89 Other specified anemias; Z88.6 Allergy status to analgesic agent; Z88.8 Allergy status to other drugs, medicaments and biological substances; Z79.899 Other long term (current) drug therapy; Z68.24 Body mass index [BMI] 24.0-24.9, adult; Z82.49 Family history of ischemic heart disease and other diseases of the circulatory system; Z83.3 Family history of diabetes mellitus
CPT/HCPCS: 10022; 36415; 49082; 74176; 76705; 76942; 80048; 80053; 81001; 82140; 82150; 82962; 83690; 83735; 85025; 85610; 85730; 93005; 94640; 96374; 96375; 97163; A4565; A6257; J0696; J2405

== ENCOUNTER 2018-02-07 18:28 | Inpatient (IN) | payer MEDICAID ==
[~2018-02-07] VITALS: Ht 165.1 cm; Wt 74.3 kg
[~2018-02-07 18:28] MED LIST changes: -HYDR25TA4; -LISI-646; -NUTR-559 PO; -PANT40TA2 PO; -PROP10TA57 PO; -SPIR50TA2 PO
[2018-02-07 19:48] LABS: Basophils # (auto) 0 uL; Monocytes # (auto) 0.5 uL
[2018-02-07 19:49] LABS: Hematocrit 27.7 % (41.0-53.0); Hemoglobin 9.2 g/dL (13.5-17.5)
[2018-02-07 19:54] LABS: Eosinophils # (auto) 0.1 uL; Neutrophils # (auto) 1.6 uL; Nucleated Red Blood Cells % 0.1 %
[2018-02-07 19:56] LABS: Basophils % (auto) 0.4 % (0.0-2.0); Eosinophils % (auto) 4.7 % (0.0-7.0); Lymphocytes # (auto) 0.8 uL; Lymphocytes % (auto) 25.6 % (10.0-50.0); Mean Corpuscular Hemoglobin 26.8 pg (28.0-32.0); Mean Corpuscular Volume 81.3 fL (80.0-100.0); Monocytes % (auto) 16.7 % (0.0-12.0); Neutrophils % (auto) 52.6 % (37.0-80.0); Platelet Count (auto) 47 10^3/uL (140-450); Red Blood Cells 3.41 10^6/uL (4.5-5.90); Red Cell Distribution Width 17.2 % (11.8-14.3); White Blood Cell 3.1 10^3/uL (4.4-10.8)
[2018-02-07 20:07] LABS: INR 1.24 (0.9-1.15); Partial Thromboplastin Time 30.1 sec (23.78-33.04); Prothrombin Time 13.1 sec (9.27-12.13)
[2018-02-07 20:12] LABS: Albumin 2.4 g/dL (3.4-5.0); Anion Gap 8 (5-15); BUN/Creatinine Ratio 17.3; Blood Urea Nitrogen 30 mg/dL (7-18); Calcium 6.9 mg/dL (8.5-10.1); Carbon Dioxide 21 mmol/L (21-32); Chloride 111 mmol/L (98-107); GFR African American 52 mL/min; GFR Non-African American 43 mL/min; Glucose 89 mg/dL (74-106); Potassium 5.1 mmol/L (3.5-5.1); Sodium 140 mmol/L (136-145)
[2018-02-07 20:19] LABS: Alanine Aminotransferase 51 U/L (16-61); Alkaline Phosphatase 171 U/L (45-117); Aspartate Aminotransferase 89 U/L (15-37); Bilirubin, Total 0.6 mg/dL (0.2-1.0); Total Protein 7.3 g/dL (6.4-8.2)
[2018-02-07] MEDS ORDERED: LACTULOSE 20Gm/30ML SOLN PO ONE (20:45)
[2018-02-08 02:38] LABS: Alcohol, Urine < 3.0 mg/dL (0-5); Amphetamine Screen, Urine NEGATIVE (NEGATIVE); Barbiturate Scree,Urine NEGATIVE (NEGATIVE); Benzodiazephine Screen, Urine NEGATIVE (NEGATIVE); Cannabinoid Screen, Urine NEGATIVE (NEGATIVE); Cocaine Screen, Urine NEGATIVE (NEGATIVE); Opiate Scree,Urine NEGATIVE (NEGATIVE); Phencyclidine Screen, Urine NEGATIVE (NEGATIVE)
[2018-02-08 02:43] LABS: Urine Bacteria NONE SEEN /hpf (None Seen); Urine Blood 2+ /uL (Negative); Urine Specific Gravity 1.011 (1.001-1.035); Urine WBC 1 /hpf (0 - 3)
[2018-02-08] MEDS ORDERED: cefTRIAXone 1GM/50ML D5W 50 ML IV SCH (05:00)
[2018-02-08] MEDS ORDERED: metroNIDAZOLE 500MG/100ML 100 ML IV SCH (06:00)
[2018-02-08 07:42] LABS: Mean Corpuscular Volume 82.1 fL (80.0-100.0)
[2018-02-08 07:44] LABS: Hematocrit 28.9 % (41.0-53.0); Hemoglobin 9.5 g/dL (13.5-17.5); Mean Corpuscular Hemoglobin 27.1 pg (28.0-32.0); Platelet Count (auto) 25 10^3/uL (140-450); Red Blood Cells 3.52 10^6/uL (4.5-5.90); Red Cell Distribution Width 17.6 % (11.8-14.3); White Blood Cell 2.8 10^3/uL (4.4-10.8)
[2018-02-08 08:03] LABS: Anion Gap 7 (5-15); Blood Urea Nitrogen 29 mg/dL (7-18); Carbon Dioxide 19 mmol/L (21-32); Chloride 111 mmol/L (98-107); Glucose 75 mg/dL (74-106); Potassium 4.8 mmol/L (3.5-5.1); Sodium 137 mmol/L (136-145)
[2018-02-08 08:08] LABS: Calcium 7.4 mg/dL (8.5-10.1); GFR African American 63 mL/min; GFR Non-African American 52 mL/min
[2018-02-08 08:13] LABS: Band Neutrophils % (manual) 0; Basophils % (manual) 0 (0.0-2.0); Blast Cells 0; Metamyelocytes % 0; Myelocytes % 0; Promyelocytes % 0; Reactive Lymphocytes 0
[2018-02-08 09:00] VITALS: BP 166/76
[2018-02-08 09:42] LABS: Eosinophils % (manual) 2 (0-7); Lymphocytes % (manual) 27 (10.0-50.0); Monocytes % (manual) 14 (0-12)
[2018-02-08] MEDS ORDERED: PROPRANOLOL HCL 20 MG TAB PO SCH (10:00)
[2018-02-08] MEDS ORDERED: FUROSEMIDE 20 MG TAB PO SCH (10:00)
[2018-02-08] MEDS ORDERED: SPIRONOLACTONE 25 MG TAB PO SCH (10:00)
[2018-02-08] MEDS ORDERED: PANTOPRAZOLE 40 MG/10 ML VIAL IV SCH (10:00)
[2018-02-08 10:14] VITALS: BP 166/76
[2018-02-08] MEDS: LACTULOSE 20Gm/30ML SOLN PO SCH ×2 (11:21→21:44)
[2018-02-08 13:00] VITALS: BP_SYST 146; BP_SYST 166; BP_DIAS 73; BP_DIAS 76
[2018-02-08] MEDS: RIFAXIMIN 550 MG TAB PO SCH ×2 (15:03→21:44)
[2018-02-08 17:00] VITALS: BP 145/82
[2018-02-08 22:00] VITALS: BP 127/70
[2018-02-09 05:00] VITALS: BP 128/77
[2018-02-09 06:57] LABS: BUN/Creatinine Ratio 17.6; Calcium 7.1 mg/dL (8.5-10.1); Potassium 4.4 mmol/L (3.5-5.1)
[2018-02-09 09:05] VITALS: BP 144/88
[2018-02-09] MEDS: RIFAXIMIN 550 MG TAB PO SCH (09:41)
[2018-02-09] MEDS: LACTULOSE 20Gm/30ML SOLN PO SCH (09:41)
[2018-02-09] MEDS ORDERED: PANTOPRAZOLE 40 MG TAB PO SCH (10:00)
[2018-02-09 13:02] VITALS: BP 146/83
[2018-02-09] MEDS ORDERED: PANT40TA2 PO (14:52)
[2018-02-09] MEDS ORDERED: SPIR50TA5 PO (14:55)
[2018-02-09 14:58] VITALS: BP 166/76
[2018-02-09] MEDS ORDERED: NutriHep RTU 240 mL Unflavored PO SCH (18:00)
== END 2018-02-09 16:00 | disposition home or self-care (01) | DRG 279 ==
LOC: EDBD 18:28 → ER 18:36 → OVERFLOW 18:37 → WEST WING 02-08 08:23
PROVIDERS: ADMIT Nurse Practitioner Family; ATTEND Internal Medicine
DX: K72.90 Hepatic failure, unspecified without coma (principal); E43 Unspecified severe protein-calorie malnutrition; D61.818 Other pancytopenia; D68.9 Coagulation defect, unspecified; E11.22 Type 2 diabetes mellitus with diabetic chronic kidney disease; C22.9 Malignant neoplasm of liver, not specified as primary or secondary; E83.51 Hypocalcemia; K76.6 Portal hypertension; K74.60 Unspecified cirrhosis of liver; B18.2 Chronic viral hepatitis C; N18.3 Chronic kidney disease, stage 3 (moderate); Z83.3 Family history of diabetes mellitus; Z80.9 Family history of malignant neoplasm, unspecified; Z82.49 Family history of ischemic heart disease and other diseases of the circulatory system; E78.5 Hyperlipidemia, unspecified; E86.0 Dehydration; E87.1 Hypo-osmolality and hyponatremia; I13.0 Hypertensive heart and chronic kidney disease with heart failure and stage 1 through stage 4 chronic kidney disease, or unspecified chronic kidney disease; K21.9 Gastro-esophageal reflux disease without esophagitis; I50.9 Heart failure, unspecified; K52.9 Noninfective gastroenteritis and colitis, unspecified; Z68.27 Body mass index [BMI] 27.0-27.9, adult
CPT/HCPCS: 36415; 71045; 74176; 80048; 80053; 80307; 80320; 81001; 82140; 82270; 83880; 84484; 85007; 85025; 85027; 85379; 85610; 85652; 85730; 87081; 93005; 96365; 96375; C9113; J3490

== ENCOUNTER 2018-02-23 12:22 | Emergency (ER) | payer MEDICAID ==
[~2018-02-23] VITALS: Ht 165.1 cm; Wt 66.7 kg
[~2018-02-23 12:22] MED LIST changes: -FURO40TA PO; +PANT40TA2 PO
[2018-02-23 13:26] LABS: Urine Bacteria FEW /hpf (None Seen); Urine Blood 3+ /uL (Negative); Urine Hyaline Cast FEW /lpf (0 - 2); Urine Mucus FEW (None Seen); Urine Specific Gravity 1.017 (1.001-1.035); Urine WBC 1 /hpf (0 - 3)
[2018-02-23 14:13] LABS: Basophils # (auto) 0 uL; Eosinophils # (auto) 0.1 uL; Monocytes # (auto) 0.3 uL; White Blood Cell 2.7 10^3/uL (4.4-10.8)
[2018-02-23 14:17] LABS: Basophils % (auto) 1.1 % (0.0-2.0); Eosinophils % (auto) 4.8 % (0.0-7.0); Hematocrit 27.6 % (41.0-53.0); Hemoglobin 8.8 g/dL (13.5-17.5); Lymphocytes # (auto) 0.6 uL; Mean Corpuscular Hemoglobin 26.3 pg (28.0-32.0); Mean Corpuscular Hgb Conc. 31.8 g/dL (32.0-36.0); Mean Corpuscular Volume 82.8 fL (80.0-100.0); Monocytes % (auto) 12.3 % (0.0-12.0); Neutrophils # (auto) 1.6 uL; Neutrophils % (auto) 59.8 % (37.0-80.0); Nucleated Red Blood Cells % 0.1 %; Platelet Count (auto) 34 10^3/uL (140-450); Red Blood Cells 3.34 10^6/uL (4.5-5.90); Red Cell Distribution Width 19.1 % (11.8-14.3)
[2018-02-23 14:31] LABS: Albumin 2.5 g/dL (3.4-5.0); Calcium 7.6 mg/dL (8.5-10.1); Potassium 5.1 mmol/L (3.5-5.1)
[2018-02-23 14:34] LABS: BUN/Creatinine Ratio 16.9; Bilirubin, Total 0.6 mg/dL (0.2-1.0); Total Protein 7.3 g/dL (6.4-8.2)
== END 2018-02-23 17:00 | disposition left against medical advice (07) ==
LOC: ER 12:22
DX: R10.9 Unspecified abdominal pain (principal); Z53.21 Procedure and treatment not carried out due to patient leaving prior to being seen by health care provider
CPT/HCPCS: 36415; 74176; 80053; 81001; 82150; 83690; 85025; 93005